=== PATIENT | female | born 1955 ===

== ENCOUNTER 2017-04-14 16:21 | Emergency (ER) | payer SELFPAY ==
[2017-04-14 16:50] VITALS: BP 146/86
--- NOTE | 2017-04-14 17:47 | UC ---
Yandel Farah Stephanie, scribed for Juan Alicea MD on 04/14/17 at 1736 . Head Injury HPI - HPI Summary HPI Summary: The pt is a 61 y/o F presenting to with c/o ADAM (pressure) s/p fall that occured last week on 04/07. The pt reports she slipped on ice and fell on her tailbone with an intensity that caused her to have a ADAM. Symptoms include nausea (not currently present), stiff neck. The pt states she had 2 prior falls in the last few months where she did experience head trauma and confusion s/p fall. After the last fall, the pt states she thinks she feels off balance. The pt denies weakness or numbness. The pt states she went to sleep after second to last fall and felt a bad pain in her head. Recent fall kevan her pretty well in the head due to the intensity of the fall. - History Of Current Complaint Chief Complaint: UCBackPain Stated Complaint: FALL Time Seen by Provider: 04/14/17 17:15 Hx Obtained From: Patient Onset/Duration: Sudden Onset, Lasting Weeks - 2 Severity Currently: Moderate Pain Intensity: 5 Pain Scale Used: 0-10 Numeric Aggravating Factor(s): Nothing Alleviating Factor(s): Nothing Associated Signs And Symptoms: Positive: Confusion, Neck Pain, Nausea - Allergies/Home Medications Allergies/Adverse Reactions: Allergies Allergy/AdvReac Type Severity Reaction Status Date / Time Penicillins Allergy Unknown Verified 04/14/17 16:51 Reaction Details Tetanus Vaccines and Toxoid Allergy Unknown Verified 04/14/17 16:51 Reaction Details Home Medications: Home Medications NK [No Home Medications Reported] 04/14/17 [History Confirmed 04/14/17] PMH/Surg Hx/FS Hx/Imm Hx Previously Healthy: No - The pt denies past medical hx. - Surgical History Surgical History: Yes Surgery Procedure, Year, and Place: Varicose Vein Surgery - Family History Known Family History: Positive: Diabetes - Social History Occupation: Unemployed Lives: Alone Alcohol Use: Rare Substance Use Type: None Smoking Status (MU): Heavy Every Day Tobacco Smoker Review of Systems Constitutional: Negative Skin: Negative Eyes: Negative ENT: Negative Respiratory: Negative Cardiovascular: Negative Gastrointestinal: Negative Genitourinary: Negative Motor: Negative Neurovascular: Negative Musculoskeletal: Other: - neck stiffness, soreness over tailbone region Neurological: Headache - pressure Psychological: Negative All Other Systems Reviewed And Are Negative: Yes Physical Exam Triage Information Reviewed: Yes Vital Signs: Initial Vital Signs Temp 98.7 F 04/14/17 16:47 Pulse 72 04/14/17 16:47 Resp 18 04/14/17 16:47 BP 146/86 04/14/17 16:47 Pulse Ox 98 04/14/17 16:47 Vital Signs Reviewed: Yes - Additional Comments General: well-appearing, no pain distress Skin: warm, color reflects adequate perfusion, dry Head: normal Eyes: EOMI, AVINASH ENT: normal Neck: supple, nontender Respiratory: CTA, breath sounds present Cardiovascular: RRR Abdomen: soft, nontender Bowel: present Musculoskeletal: normal, strength/ROM intact Neurological: normal, sensory/motor intact, A&O x3 Psychological: affect/mood appropriate Head Injury Course/Dx - Course Course Of Treatment: BP noted and advised to follow up with PCP. Medications reviewed. PATIENT DECLINED X-RAYS OF COCCYX. WE DEICUSSED TREATMENT OF COCCYX INJURIES. NO FOCAL NEUROLOGIC DEFICITS ON EXAM. I RECOMMENDED GETTING A HEAD CT. THE SX OF CONCUSSION HAVE BEEN GOING ON FOR MORE THAN 1 WEEK, IT DOES NOT APPEAR TO BE EMERGENCY TO GET THE CT DONE IMMMEDIATELY; THE PATIENT PREFERED TO NOT GO TO THE ED TONG FOR A HEAD CT. SHE IS CONSIDERING RETURNING HERE WHEN CT IS AVAILABLE. I DISCUSSED GOING TO THE ED IMMEDIATELY WITH ANY WORSENING IN SYMPTOMS; SHE AGREED. - Differential Dx/Diagnosis Provider Diagnoses: CONCUSSION. COCCYX INJURY. elevated BP without dx of HTN Discharge - Discharge Plan Condition: Stable Disposition: HOME Patient Education Materials: Coccyx Injury (ED), Concussion (ED) Referrals: [facility] [Outside] Additional Instructions: FOLLOW UP WITH YOUR DOCTOR. OUR URGENT [facility] HAS RADIOLOGY CT COVERAGE SATURDAY THROUGH SATURDAY, 7AM UNTIL 3PM. GO TO THE EMERGENCY DEPARTMENT FOR ANY WORSENING OF YOUR CONDITION; WEAKNESS, NUMBNESS, CHANGES IN VISION OR SPEECH, UNEXPLAINED VOMITING, YOU FEEL ILL, PAIN OR QUESTIONS OR CONCERNS. YOUR BLOOD PRESSURE WAS ELEVATED DURING TODAY'S VISIT; FOLLOW UP WITH YOUR PCP WITHIN ONE WEEK FOR FURTHER EVALUATION. The documentation as recorded by the Yandel pulliam Stephanie accurately reflects the service I personally performed and the decisions made by me, Juan Alicea MD.
== END 2017-04-14 17:45 | disposition home or self-care (01) ==
LOC: UCEAST 16:21
DX: S06.0X9A Concussion with loss of consciousness of unspecified duration, initial encounter (principal); S39.92XA Unspecified injury of lower back, initial encounter; W00.0XXA Fall on same level due to ice and snow, initial encounter; Y93.29 Activity, other involving ice and snow; Y92.9 Unspecified place or not applicable; Y99.9 Unspecified external cause status; R03.0 Elevated blood-pressure reading, without diagnosis of hypertension; F17.210 Nicotine dependence, cigarettes, uncomplicated
CPT/HCPCS: 99211; G0463